=== PATIENT | male | born 1970 | race Caucasian/White ===

== ENCOUNTER → 2023-02-05 10:32 | Outpatient (BNVA) | payer MEDICARE, SELFPAY | PROVIDERS: PCP Family Medicine; Visit Provider Nurse Practitioner | DX: M67.912 Unspecified disorder of synovium and tendon, left shoulder; R29.898 Other symptoms and signs involving the musculoskeletal system; M54.2 Cervicalgia | CPT/HCPCS: 73030; 99204 ==

== ENCOUNTER 2023-04-01 10:41 | Outpatient (CLI) | payer MEDICARE, SELFPAY ==
--- NOTE | 2023-04-01 10:47 | MR_ITS ---
WS: [id number] MRI LEFT SHOULDER HISTORY: left shoulder pain, Rotator cuff weakness. COMPARISON: Radiograph 01/26/2023 TECHNIQUE: Multiplanar sequences of the shoulder joint are submitted. Severe AC joint arthritis. Soft tissue and osteophyte encroachment and hypertrophic changes. Encroach ment upon the myotendinous insertion of the supraspinatus. Additional subacromial impingement. Very s mall amount of fluid in the subdeltoid bursa. Biceps tendon in normal position. No os acromion. No rotator cuff muscle atrophy or edema. Very small insertion site tear of the posterior supraspinatu s tendon with interstitial extension. Additional mild tendinopathy. No full-thickness tear. Mild tend inopathy in the distal subscapularis tendon but no full-thickness tear. Infraspinatus tendon appears normal. Mild narrowing of the glenohumeral joint. Increased T2 signal courses along the superior angeline oid within the labrum. Most typical for normal variant within the labrum. Not a definite labral tear. This increased signal extends over a small portion of the labrum. IMPRESSION: 1. Severe AC joint arthritis with encroachment upon the myotendinous portion of the supraspinatus. 2. Very small insertion site tear of the posterior supraspinatus tendon with interstitial extension. 3. Distal subscapularis tendinopathy.
== END 2023-04-01 10:42 | disposition home or self-care (01) ==
LOC: RAD 10:41
PROVIDERS: PCP Family Medicine; Visit Provider Nurse Practitioner
DX: M19.012 Primary osteoarthritis, left shoulder (principal); M75.102 Unspecified rotator cuff tear or rupture of left shoulder, not specified as traumatic; M67.919 Unspecified disorder of synovium and tendon, unspecified shoulder; R29.898 Other symptoms and signs involving the musculoskeletal system; M67.912 Unspecified disorder of synovium and tendon, left shoulder
CPT/HCPCS: 73221

== ENCOUNTER → 2023-04-20 10:36 | Outpatient (BNVA) | payer MEDICARE, SELFPAY | PROVIDERS: PCP Family Medicine; Visit Provider Nurse Practitioner | DX: M75.42 Impingement syndrome of left shoulder (principal); G89.29 Other chronic pain; M19.012 Primary osteoarthritis, left shoulder; R29.898 Other symptoms and signs involving the musculoskeletal system; M54.2 Cervicalgia | CPT/HCPCS: 99214 ==

== ENCOUNTER 2023-05-01 07:41 | Day surgery (SDC) | payer MEDICARE, SELFPAY ==
[2023-05-01] VITALS (9 sets, daily range): BP systolic 108–139; BP diastolic 70–90; PULSE 70–93; RESP 13–19; TEMP 36.1–36.5; O2SAT 92–97; BMI 26.6
[2023-05-01] MEDS: acetaminophen 1,000 MG/100 ML PIGGYBACK 400 MG IV (08:07)
[2023-05-01 08:09] LABS: Glucose Point of Care 297 mg/dL (70-110)
[2023-05-01] MEDS: sodium chloride 0.9% 1,000 ML 30 ML IV (08:12)
[2023-05-01] MEDS: CELEcoxib 200 mg Capsule 400 MG PO (08:12)
[2023-05-01] MEDS: gabapentin 300 mg Capsule PO (08:12)
--- NOTE | 2023-05-01 08:21 | ANES.PREANE2 ---
Pre-Anesthetic Assessment Height/Weight: Height 1.75 m Weight 81.647 kg Temp Pulse Resp BP Pulse Ox O2 Del Method 97 F L 88 16 139/87 95 Room Air 05/01/23 07:53 05/01/23 07:53 05/01/23 07:53 05/01/23 07:53 05/01/23 07:53 05/01/23 07:53 Operation Date: 05/01/23 09:15 Proposed Procedures p Acromioplasty/ Left shoulder open(Left) - Cindy Russell MD s Distal Clavicle Resection with debridement(Left) - Cindy Russell MD Familial anesthetic complications: None Was Beta Nathalie taken within 24 hours: N/A Was Clonidine taken within 24 hours: N/A Last intake: Intake Last Liquid Date 04/30/23 Last Liquid Time 20:00 Last Solid Date 04/30/23 Last Solid Time 20:00 Social Tobacco and No alcohol Exam alert, oriented x 3, clear to auscultation bilaterally and regular rate & rhythm Airway Mallampati: Class II Comments: Comments: 4 remaining teeth, all broken and loose, patient informed of risk of further damage to dentition with surgery Metabolic Diabetes Mellitus Anesthetic Plan ASA status: 2 Anesthesia: General and Regional (specify below) Risk of > 500 ml blood loss (7ml/kg in children): No Medications/Allergies Home Medications Medication Instructions Recorded Confirmed Last Taken Type glipizide 10 mg tablet, extended 10 ea PO DAILY 02/05/23 04/30/23 04/30/23 History release 24 hr insulin detemir U-100 100 unit/mL 24 unit SUBCUT DAILY 02/05/23 04/30/23 04/30/23 History (3 mL) subcutaneous pen (Levemir FlexPen) insulin lispro 100 unit/mL 5 sliding scale dose SUBCUT QID 02/05/23 04/30/23 04/30/23 History subcutaneous pen methocarbamol 500 mg tablet 500 ea PO BID 02/05/23 04/30/23 04/30/23 History oxycodone-acetaminophen 10 mg-325 1 tab PO Q6H PRN Pain, Mild 02/05/23 05/01/23 05/01/23 History mg tablet pregabalin 100 mg capsule (Lyrica) 100 mg PO TID 02/05/23 04/30/23 04/30/23 History ibuprofen 800 mg tablet 800 mg PO BID PRN Pain 04/30/23 04/30/23 04/26/23 History Allergies Allergy/AdvReac Type Severity Reaction Status Date / Time No Known Allergies Allergy Verified 05/01/23 07:51 Current Medications Generic Name Dose Route Start Last Admin Trade Name Freq PRN Reason Stop Dose Admin Sodium Chloride 1,000 mls @ 30 mls/hr 05/01/23 08:00 05/01/23 08:12 Sodium Chloride 0.9% IV 05/02/23 07:59 30 mls/hr .Q24H ASPEN Administration PFSH Anesthesia Medical History Acromioclavicular joint arthritis Impingement syndrome, shoulder, left Left shoulder pain Social History Smoking and tobacco/nicotine status: current every day tobacco/nicotine user Alcohol intake: never Substance/Drug Use: never Data Anesthesia Cardiac Studies: No Data to Display
[2023-05-01] MEDS: insulin regular-human 100 units/1 mL 10 UNIT IVP (08:52)
--- NOTE | 2023-05-01 09:33 | ANES.PREANE2 ---
Pre-Anesthetic Assessment Height/Weight: Height 1.75 m Weight 81.647 kg Temp Pulse Resp BP Pulse Ox O2 Del Method 97 F L 88 16 139/87 95 Room Air 05/01/23 07:53 05/01/23 07:53 05/01/23 07:53 05/01/23 07:53 05/01/23 07:53 05/01/23 07:53 Operation Date: 05/01/23 09:15 Proposed Procedures p Acromioplasty/ Left shoulder open(Left) - Cindy Russell MD s Distal Clavicle Resection with debridement(Left) - Cindy Russell MD Familial anesthetic complications: None Last intake: Intake Last Liquid Date 04/30/23 Last Liquid Time 20:00 Last Solid Date 04/30/23 Last Solid Time 20:00 Medications/Allergies Home Medications Medication Instructions Recorded Confirmed Last Taken Type glipizide 10 mg tablet, extended 10 ea PO DAILY 02/05/23 04/30/23 04/30/23 History release 24 hr insulin detemir U-100 100 unit/mL 24 unit SUBCUT DAILY 02/05/23 04/30/23 04/30/23 History (3 mL) subcutaneous pen (Levemir FlexPen) insulin lispro 100 unit/mL 5 sliding scale dose SUBCUT QID 02/05/23 04/30/23 04/30/23 History subcutaneous pen methocarbamol 500 mg tablet 500 ea PO BID 02/05/23 04/30/23 04/30/23 History oxycodone-acetaminophen 10 mg-325 1 tab PO Q6H PRN Pain, Mild 02/05/23 05/01/23 05/01/23 History mg tablet pregabalin 100 mg capsule (Lyrica) 100 mg PO TID 02/05/23 04/30/23 04/30/23 History ibuprofen 800 mg tablet 800 mg PO BID PRN Pain 04/30/23 04/30/23 04/26/23 History Allergies Allergy/AdvReac Type Severity Reaction Status Date / Time No Known Allergies Allergy Verified 05/01/23 07:51 Current Medications Generic Name Dose Route Start Last Admin Trade Name Freq PRN Reason Stop Dose Admin Sodium Chloride 1,000 mls @ 30 mls/hr 05/01/23 08:00 05/01/23 08:12 Sodium Chloride 0.9% IV 05/02/23 07:59 30 mls/hr .Q24H ASPEN Administration PFSH Anesthesia Medical History Acromioclavicular joint arthritis Impingement syndrome, shoulder, left Left shoulder pain Social History Smoking and tobacco/nicotine status: current every day tobacco/nicotine user Alcohol intake: never Substance/Drug Use: never Data Anesthesia Cardiac Studies: No Data to Display
--- NOTE | 2023-05-01 09:33 | ANES.PROC ---
Anesthesia Procedures Procedure/Date: 05/01/23 Nerve Block ^: Nerve Block 1: Main Anesthesia: general anesthesia Time Out Performed: Yes Consent: requested by attending/covering physician, from patient, risks and benefits reviewed and patient agrees to proceed Nerve block location: interscalene (L) Anesthesia monitors applied: pulse oximetry, EKG and BP cuff Anesthetic Used: ropivicaine 0.5% (20 ml) and with decadron (3 mg) Ultrasound used to: recognize landmarks, visualize and ID brachial plexus, in supraclavicular region and visualize and ID interscalene groove Nerve Stimulator Used?: No Interscalene/Femoral BLK: 2 stimuplex 22 g needle used for position and inplane approach, visualize local anesthetic spread and no vascular puncture identified Injection: neg aspiration of heme Patient Tolerated Procedure: well Complications: none
[2023-05-01 10:05] LABS: Glucose Point of Care 261 mg/dL (70-110)
--- NOTE | 2023-05-01 10:15 | W.PM.OPSUD ---
Surgery/Procedure H&P Update DATE OF PROCEDURE: May 01, 2023 DATE H&P PERFORMED: 04/20/22 H&P UPDATE INFORMATION: I have reviewed H&P completed within last 30 days, I have examined patient prior to procedure, No changes to prior documentation and H&P is in [facility] EMR on date indicated PLANNED PROCEDURE: Operation Date: 05/01/23 09:15 Proposed Procedures p Acromioplasty/ Left shoulder open(Left) - Cindy Russell MD s Distal Clavicle Resection with debridement(Left) - Cindy Russell MD Related Problem List Diagnoses (1) Impingement syndrome, shoulder, left: (2) Acromioclavicular joint arthritis: Qualifiers: Laterality: left Qualified Code(s): M19.012 - Primary osteoarthritis, left shoulder
[2023-05-01] MEDS: ceFAZolin 2,000 MG in sodium chloride 0.9% (plus) 50 ML 100 MG IV (10:20)
[2023-05-01] MEDS: ceFAZolin 1,000 mg SDV 1000 MG IRRIGATION (10:59)
[2023-05-01 11:56] LABS: Glucose Point of Care 292 mg/dL (70-110)
--- NOTE | 2023-05-01 12:07 | PM.OP ---
Operative Report Date of procedure: May 01, 2023 Pre-op diagnosis: Left shoulder impingement and degenerative osteoarthritis of the acromioclavicular joint Post-op diagnosis: Left shoulder impingement, bursitis, and degenerative osteoarthritis of the acromioclavicular joint Post-op findings: Significant acromioclavicular joint osteoarthritis with expansion of the distal clavicle. Additionally, there was severe impingement of the anterolateral acromion on the rotator cuff. Significant bursa thickening with no evidence of rotator cuff tear Procedure done: Left shoulder open acromioplasty with distal clavicle resection, bursectomy, and debridement Implants: None Pathology: None Surgeon: Cindy Russell MD Buckle Inspector: [facility] operating room technicians Anesthesia: General (Intubated, ASA 2) Estimated blood loss (mL): 10 IV fluids (mL): 600 Urine output (mL): 0 (No Tobias) Complications: None Findings: Severe impingement with downsloping of the acromion and small osteophyte formation. Very thickened and inflamed bursa. Condition: stable Disposition: PACU (Then return to same-day surgery for discharge to home) Brief History: This 52-year-old gentleman presents today for open distal clavicle resection with debridement of the shoulder. Working diagnosis is impingement in addition to the acromioclavicular joint degenerative osteoarthritis. He had an MRI which demonstrated severe AC joint arthritis with encroachment upon the supraspinatus tendon. There was also noted to be a very small insertion site tear of the posterior supraspinatus tendon with tendinitis of the distal subscapularis. All of these likely due to impingement. The patient tried and failed oral anti-inflammatory medications, corticosteroid injection, activity modifications, and a home physical therapy program. Routinely, he uses oxycodone for his chronic neck and lower back pain, and he states this has not been helpful for his shoulder at this time. Plans were made for the surgical intervention. Risks and complications were discussed with the patient, and consents were signed. Procedure: The patient was brought to the operating theater and underwent general intubated anesthesia ASA 2. The patient was placed in a beachchair position and subsequently the left upper extremity was prepped and draped in the usual fashion utilizing DuraPrep. The arm was draped free. A surgical pause was performed prior to commencement of the surgical procedure. At the time of the surgical pause, we confirmed the site and side of surgery as well as administration of appropriate preoperative antibiotics Ancef 2 g. MRI was also reviewed at that time. Following the surgical pause, an incision was made at approximately the level of the acromioclavicular joint extending across the anterolateral corner of the acromion and distally as necessary. Care was taken to avoid injury to the axillary nerve by limiting the distal extent of the incision. Dissection continued through skin and soft tissues using a scalpel. Hemostasis was obtained using electrocautery. Soft tissues were elevated off the acromion. There was severe impingement with significant thickening of the bursa secondary to this. A bursectomy was performed followed by debridement and resection of the anterior lateral aspect of the acromion which was causing the severe impingement. There were noted to be small spurs on the anterior lateral border. This acromioplasty was accomplished using a combination of a saw and a power rasp. With this, we were able to remove compression caused by the acromion. The rotator cuff was then evaluated to look for tears. There were no obvious rotator cuff tears on visual inspection or palpation. The acromioclavicular joint was exposed. A saw was then used to resect the distal clavicle without difficulty. The undersurface of the clavicle was palpated and was slightly further debrided. A power rasp was used to further smooth the area. When this was felt to be adequately resected, the wound was irrigated. Attention was then directed to closure. The wound was irrigated and closure was accomplished with 0 Vicryl in the capsular tissues overlying the acromioclavicular joint area as well as over the acromion and down into the deltoid muscle. 2-0 Monocryl was used to close the subcutaneous tissues followed by 4-0 Monocryl subcuticular closure. This was followed by Dermabond, Steri-Strips, and an OpSite. The patient was placed in a sling and was returned to the recovery room in satisfactory condition. The patient will be discharged to home to follow-up with me in the office as scheduled. There were no complications and no specimens. Related Problem List Diagnoses (1) Acromioclavicular joint arthritis: (2) Impingement syndrome, shoulder, left:
--- NOTE | 2023-05-01 13:30 | ANE.PACU2 ---
Inpatient post-anesthesia follow up: Airway intact: Yes Vital signs: Temperature 97.2 F Pulse Rate 90 Respiratory Rate 18 Blood Pressure 115/90 Pulse Oximetry 92 Oxygen Delivery Me thod Room Air Oxygen Flow Rate Fraction of Inspir ed Oxygen Hydration adequate: Yes Nausea and vomiting: No Pain level: 1 Mental status: Baseline
== END 2023-05-01 13:29 | disposition home or self-care (01) ==
PROVIDERS: PCP Family Medicine; Visit Provider Specialist
PROC: (CPT 23130; principal; 2023-05-01 09:15)
PROC: (CPT 23120; 2023-05-01 09:15)
DX: M19.012 Primary osteoarthritis, left shoulder (principal); M25.812 Other specified joint disorders, left shoulder; F17.210 Nicotine dependence, cigarettes, uncomplicated
CPT/HCPCS: 23120; 23130; 36416; 82962; J0131; J0330; J0690; J1100; J1815; J2371; J2405; J2704; J2795; J3010; J3490; J7030

== ENCOUNTER → 2023-05-18 15:49 | Outpatient (BNVA) | payer MEDICARE, SELFPAY | PROVIDERS: PCP Family Medicine; Visit Provider Nurse Practitioner | DX: M75.42 Impingement syndrome of left shoulder (principal); M19.012 Primary osteoarthritis, left shoulder; Z98.890 Other specified postprocedural states | CPT/HCPCS: 73030; 99024 ==

== ENCOUNTER → 2023-10-23 10:30 | Outpatient (BNVA) | payer MEDICARE, SELFPAY | PROVIDERS: Visit Provider Nurse Practitioner Family | DX: L57.0 Actinic keratosis (principal); D48.5 Neoplasm of uncertain behavior of skin; D04.5 Carcinoma in situ of skin of trunk; D04.4 Carcinoma in situ of skin of scalp and neck; L60.3 Nail dystrophy; B35.1 Tinea unguium; B35.2 Tinea manuum | CPT/HCPCS: 11102; 17004; 99204 ==